=== PATIENT | female | born 1980 | race Two or more races ===

== ENCOUNTER 2021-02-11 10:44 | Emergency (ER) | payer SELFPAY ==
[~2021-02-11] VITALS: Ht 165.1 cm; Wt 89.9 kg
[~2021-02-11 10:44] MED LIST: ALBU2.5V8 INH; CEPH-264 PO; FLUT9.9S NS
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
[2021-02-11 12:32] LABS: BASO % 1 % (0-3); EOS # 0.1 x10^3/uL (0.0-0.7); EOS % 2 % (0-3); HEMATOCRIT 28.1 % (36.0-47.0); HEMOGLOBIN 8.7 g/dL (12.0-15.5); LYMPH # 1.1 x10^3/uL (1.0-4.8); LYMPH % 23 % (24-48); MEAN CORPUSCULAR HEMOGLOBIN 25 pg (25-35); MEAN CORPUSCULAR HGB CONC 31 g/dL (31-37); MEAN CORPUSCULAR VOLUME 80 fL (79-100); MONO # 0.5 x10^3/uL (0.0-1.1); MONO % 10 % (0-9); NEUT # 3.3 x10^3/uL (1.8-7.7); NEUT % 64 % (31-73); PLATELET COUNT 393 x10^3/uL (140-400); RED BLOOD COUNT 3.49 x10^6/uL (3.50-5.40); RED CELL DISTRIBUTION WIDTH 21.8 % (11.5-14.5); WHITE BLOOD COUNT 5.1 x10^3/uL (4.0-11.0)
--- NOTE | 2021-02-11 12:34 | RAD ---
EXAM: Chest, single view. HISTORY: Cough. Shortness of air. COMPARISON: None. FINDINGS: A frontal view of the chest is obtained. There is no infiltrate, pleural effusion or pneumo thorax. The heart is normal in size. IMPRESSION: No acute pulmonary finding. Electronically signed by: Melanie Garzon MD (02/11/2021 12:32 PM) [id number]
[2021-02-11 12:54] LABS: CALCIUM 8.4 mg/dL (8.5-10.1); CREATININE 0.6 mg/dL (0.6-1.0); GFR 110.7; POTASSIUM 3.6 mmol/L (3.5-5.1)
[2021-02-11 12:59] LABS: ALBUMIN 2.9 g/dL (3.4-5.0); ALBUMIN/GLOBULIN RATIO 0.7 (1.0-1.7); MAGNESIUM 2.1 mg/dL (1.8-2.4); TOTAL BILIRUBIN 0.1 mg/dL (0.2-1.0); TOTAL PROTEIN 7.1 g/dL (6.4-8.2)
[2021-02-11 13:07] VITALS: BP 151/88
[2021-02-11] MEDS ORDERED: ASPIRIN ENTERIC COATED 325 MG TABLET.DR. PO ONE (13:15)
[2021-02-11] MEDS ORDERED: DEXAMETHASONE SOD PHOS 4 MG/ML VIAL IVP ONE (13:30)
--- NOTE | 2021-02-11 13:43 | EKG ---
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
[2021-02-11 14:04] LABS: BARBITURATES NEG (NEG); BENZODIAZEPINES NEG (NEG); CANNABINOIDS NEG (NEG); COCAINE NEG (NEG); METHADONE NEG (NEG); OPIATES NEG (NEG); PHENCYCLIDINE NEG (NEG)
[2021-02-11 14:07] LABS: AMPHETAMINE/METHAMPHETAMINE POS (NEG)
== END 2021-02-11 13:40 | disposition left against medical advice (07) ==
LOC: ER 11:21
DX: J45.909 Unspecified asthma, uncomplicated (principal); R60.0 Localized edema; R77.8 Other specified abnormalities of plasma proteins; F10.20 Alcohol dependence, uncomplicated; Y90.2 Blood alcohol level of 40-59 mg/100 ml; E78.00 Pure hypercholesterolemia, unspecified; I10 Essential (primary) hypertension; F17.200 Nicotine dependence, unspecified, uncomplicated; Z88.1 Allergy status to other antibiotic agents
CPT/HCPCS: 36415; 71045; 80053; 80307; 81025; 83735; 83880; 84484; 85025; 87070; 87880; 93005; 96374; 99285; G0480; J1100